=== PATIENT | female | born 1970 | race Caucasian/White ===

== ENCOUNTER 2018-04-16 09:55 | Day surgery (SDC) | payer OTHER ==
[2018-04-16] VITALS (8 sets, daily range): BP systolic 123–156; BP diastolic 60–76; PULSE 82–88; RESP 11–19; Ht 157.5 cm; Wt 84.6 kg
[~2018-04-16] VITALS: Ht 157.5 cm; Wt 84.6 kg
[~2018-04-16 09:55] MED LIST: BROMFENAC SODIUM 1.7 ML OPH DROP OPER SCH; CEPH-443 PO; CYCLOPENTOLATE 2% 2 ML OPH OPER SCH; FLUC200T PO; HYDR-3498 PO; LACTATED RINGER'S 1,000 ML IV SCH; LIDOCAINE 3.5% GEL TUBE OPER ONE; MOXIFLOXACIN 0.5% 3 ML OPH OPER SCH; PHENYLephrine 10% 5 ML OPH OPER SCH; SAN30GM TOP; TROPICAMIDE 1% 15 ML OPH OPER SCH
[2018-04-16] MEDS ORDERED: HYDR25TA6 PO (10:19)
[2018-04-16] MEDS ORDERED: LOSA100T8 PO (10:20)
[2018-04-16] MEDS ORDERED: METF100010 PO (10:20)
[2018-04-16] MEDS ORDERED: AMLO5TAB4 PO (10:20)
[2018-04-16] MEDS ORDERED: OFLO5DRO46 LEFT EYE (10:21)
[2018-04-16] MEDS ORDERED: PRED5DRO20 LEFT EYE (10:22)
[2018-04-16] MEDS ORDERED: KETO5DRO21 LEFT EYE (10:24)
[2018-04-16] MEDS: TETRACAINE 0.5% 4 ML OPH OPER SCH ×2 (10:48→12:40)
[2018-04-16] MEDS ORDERED: EPINEPHrine 1 MG INJ ONE ×2 (11:46→11:51)
[2018-04-16] MEDS ORDERED: CARBACHOL 0.01% 1.5 ML OPH INJ ONE (11:46)
--- NOTE | 2018-04-16 11:53 | HPN ---
Date/Time of Note Date/Time of Note DATE: 04/16/18 TIME: 11:53 Interval H&P Admission Note Pt. seen H&P reviewed: No system changes KELIN HERNANDEZ D.O. Apr 16, 2018 11:53
[2018-04-16] MEDS ORDERED: TRYPAN BLUE 0.5 ML SYG IO SCH (12:00)
[2018-04-16] MEDS ORDERED: LIDOCAINE 1.5%/EPI MPF (SDV) 30 ML VIAL INJ SCH (12:00)
--- NOTE | 2018-04-16 12:03 | PREAC ---
Date/Time of Note Date/Time of Note DATE: 04/16/18 TIME: 12:01 Anesthesia Eval and Record Evaluation Time Pre-Procedure Interview DATE: 04/16/18 TIME: 12:01 Age 47 Sex female NPO: 8 hrs Preoperative diagnosis L cataract Planned procedure L cataract extraction w/ IOL Past Medical History Past Medical History: Includes Cardio: HTN Endo: Diabetes Surgery & Anesthesia Issues No known issue Meds Anticoagulation: No Beta Emeka within 24 hr: No Reason Beta Emeka not given: Pt. not on B-Emeka Reported Medications Ketorolac Tromethamine Oph (Ketorolac Tromethamine Oph) 0.5%-5 Ml Opht Drops, 1 DROP LEFT EYE QID, EA 04/16/18 Prednisolone Acetate* (Pred Forte*) 5 Ml Susp, 1 DROP LEFT EYE QID, EA 04/16/18 Ofloxacin* (Ocuflox*) 0.3%-5 Ml Ophth Drops, 1 DROP LEFT EYE QID, BOTTLE 04/16/18 Metformin Hcl* (Metformin Hcl*) 1,000 Mg Tablet, 1000 MG PO WITH BREAKFAST DINNE, #60 TAB 04/16/18 Amlodipine Besylate* (Norvasc*) 5 Mg Tablet, 5 MG PO DAILY, TAB 04/16/18 Losartan Potassium* (Losartan Potassium*) 100 Mg Tablet, 100 MG PO DAILY, TAB 04/16/18 Hydrochlorothiazide* (Hydrochlorothiazide*) 25 Mg Tab, 25 MG PO DAILY, #30 TAB 04/16/18 Discontinued Scripts Cephalexin* (Keflex*) 500 Mg Capsule, 500 MG PO QID for 7 Days, CAP Prov:TITI SHELL PA-C 03/08/16 Collagenase* (Santyl*) 1 Applic Oint, 1 APPLIC TOP DAILY for 30 Days Prov:DANYA BARROW MD 06/21/15 Hydrocodone Bit/Acetaminophen (Anexsia 5-325 Mg Tablet) 1 Tab Tab, 1 TAB PO Q6 PRN for pain, #30 TAB Prov:DANYA BARROW MD 06/21/15 Fluconazole* (Diflucan*) 200 Mg Tab, 200 MG PO DAILY, #10 TAB Prov:DANYA BARROW MD 06/21/15 Current Medications Lactated Ringer's 1,000 ml @ 25 mls/hr Q24H IV ; Start 04/16/18 at 07:00 Cyclopentolate HCl (Cyclogyl 2% Oph) 1 drop Q5MIN X 3 OPER Last administered on 04/16/18 10:48; Admin Dose 1 DROP; Start 04/16/18 at 07:00 Bromfenac Sodium (Bromday) 1 drop Q5 MIN X3 OPER Last administered on 04/16/18 10:47; Admin Dose 1 DROP; Start 04/16/18 at 07:00 Phenylephrine HCl (Ak-Dilate 10%) 1 drop Q5MIN X 3 OPER Last administered on 04/16/18 10:47; Admin Dose 1 DROP; Start 04/16/18 at 07:00 Tropicamide (Mydriacyl 1%) 1 drop Q5MIN X 3 OPER Last administered on 04/16/18 10:46; Admin Dose 1 DROP; Start 04/16/18 at 07:00 Moxifloxacin HCl (Vigamox) 1 drop Q5MIN X 3 OPER Last administered on 04/16/18 10:48; Admin Dose 1 DROP; Start 04/16/18 at 07:00 Tetracaine HCl (Tetracaine 0.5% Steri-Unit Nancy) 1 drop Q5 MIN X3 OPER Last administered on 04/16/18 10:48; Admin Dose 1 DROP; Start 04/16/18 at 07:00 Lidocaine/ Epinephrine (Xylocaine 1.5%/ Epi Mpf(Sdv)) 30 ml ONCE INJ ; Start 04/16/18 at 12:00; Stop 04/16/18 at 12:01 Meds reviewed: Yes Allergies Coded Allergies: No Known Allergy (Unverified , 04/16/18) Allergies Reviewed: Yes Labs/Studies Labs Reviewed: Reviewed by anesthesiologist na 134, gluc 117 test: Negative Studies: ECG (nml), CXR (nad) Pre-procedure Exam Last vitals Vital Signs Date Temp Pulse Resp B/P (MAP) Pulse Ox O2 O2 Flow FiO2 Time Delivery Rate 04/16/18 97.5 88 18 156/76 100 Room Air 11:06 (102) Airway: Adequate mouth opening, Adequate thyromental dist Mallampati: Mallampati II Teeth: Abnormal (missing teeth) Lung: Normal Heart: Normal ASA Physical Status ASA physical status: 2 Emergency: None Planned Anesthetic General/MAC: MAC Pre-operative Attestations Prior to commencing anesthesia and surgery, the patient was re-evaluated, there was verification of: *The patient's identity *The results of appropriate recent lab work and preoperative vital signs *The above evaluation not changing prior to induction *Anesthetic plan, risk benefits, alternative and complications discussed with patient/family; questions answered; patient/family understands, accepts and wishes to proceed. HOANG PARTICIA Apr 16, 2018 12:03
[2018-04-16] MEDS ORDERED: MIDAZOLAM 1 MG/ML 2 ML INJ ONE (12:06)
[2018-04-16] MEDS ORDERED: CEFAZOLIN 1 GM INJ ONE (12:06)
[2018-04-16] MEDS ORDERED: ALBUTEROL 0.083% (NEB) 2.5 MG/3 ML AMP HHN PRN (12:30)
[2018-04-16] MEDS ORDERED: ACETAMINOPHEN 500 MG TAB PO PRN (12:30)
[2018-04-16] MEDS ORDERED: ACETAMINOPHEN 325 MG TAB PO PRN (12:30)
[2018-04-16] MEDS ORDERED: OXYCODONE/ACETAMINOPHEN (5/325) TAB PO PRN (12:30)
[2018-04-16] MEDS ORDERED: DIPHENHYDRAMINE 50 MG INJ IV PRN (12:30)
[2018-04-16] MEDS ORDERED: FENTAnyl 50 MCG/ML VIAL IV PRN (12:30)
[2018-04-16] MEDS ORDERED: ONDANSETRON 4 MG INJ IV PRN (12:30)
[2018-04-16] MEDS ORDERED: LABETALOL HCL 20MG INJ IV PRN (12:30)
[2018-04-16] MEDS ORDERED: hydrALAzine 20 MG INJ IV PRN (12:30)
[2018-04-16] MEDS ORDERED: TOBRAMYCIN/DEXAMETH 3.5 GM OPH OINT LEFT EYE ONE (12:40)
--- NOTE | 2018-04-16 13:03 | SIPON ---
Date/Time of Note Date/Time of Note DATE: 04/16/18 TIME: 13:01 Operative Report Preoperative Diagnosis Secondary mature cataract, Rt eye Postoperative Diagnosis Secondary mature cataract, Rt eye Operation/Procedure Performed Cataract extraction via phacoemulsification and IOL implantation, Lt eye Surgeon see signature line assistant professor of history none Anesthesia: MAC Estimated blood loss: none Transfusion Required none Specimen none Grafts/Implants Tyree MA 60 IOL 19.00 Complications none KELIN HERNANDEZ D.O. Apr 16, 2018 13:03
--- NOTE | 2018-04-16 13:05 | PAC ---
Date/Time of Note Date/Time of Note DATE: 04/16/18 TIME: 13:05 Post-Anesthesia Notes Post-Anesthesia Note Last documented vital signs Vital Signs Date Temp Pulse Resp B/P (MAP) Pulse Ox O2 O2 Flow FiO2 Time Delivery Rate 04/16/18 97.5 88 18 156/76 100 Room Air 11:06 (102) Activity: WNL Respiratory function: WNL Cardiovascular function: WNL Mental status: Baseline Pain reasonably controlled: Yes Hydration appropriate: Yes Nausea/Vomiting absent: Yes HOANG PATRICIA Apr 16, 2018 13:05
--- NOTE | 2018-04-16 13:37 | NUR ---
PACU NOTES: PATIENT AWAKE AND ALERT. S/P LEFT CATARACT EXTRACTION W/ IOL W/ LEFT EYE PATCH NO COMPLAIN OF PAIN. [facility] NOTIFIED OF TRANSFER TO [facility]. ROOM AIR 99%. BLOOD SUGAR 98
--- NOTE | 2018-04-16 14:18 | NUR ---
RE: DISCHARGE PATIENT DISCHARGED HOME. ALL DISCHARGE INSTRUCTIONS EXPLAINED AND PROVIDED TO PATIENT AND FAMILY. IV REMOVED. PATIENT VERBALIZED READINESS FOR DISCHARGE AND UNDERSTANDING OF INSTRUCTIONS PROVIDED. STABLE TO LEAVE THE HOSPITAL.
--- NOTE | 2018-04-16 15:28 | OPR ---
DATE OF OPERATION: 04/17/2018 SURGEON: Kelin Arenas DO ANESTHESIOLOGIST: Amada Wagner NP ANESTHESIA: MAC PREOPERATIVE DIAGNOSIS: Secondary diabetic mature cataract, left eye. POSTOPERATIVE DIAGNOSIS: Secondary diabetic mature cataract, left eye. PROCEDURE PLANNED: Cataract extraction via phacoemulsification and intraocular lens implantation, left eye. PROCEDURE PERFORMED: Cataract extraction via phacoemulsification and intraocular lens implantation, left eye. CONSENT: The patient was given detailed explanation regarding treatment option, outcome and possible complication of her condition. The patient is aware that she has high risk of complication due to underlying condition such as glaucoma, diabetes and hypertension. Complications included, but not limited to bleeding, infection, loss of the nucleus, loss of the fragment of nucleus, dislocation of intraocular lens, vitreous hemorrhage, loss of vision, cornea swelling, possible additional surgeries and loss of the eye as an organ. The patient understood. Consent was signed and can be found in her chart. DESCRIPTION OF PROCEDURE: The patient was brought to the operating room in stable condition, placed on operating table in supine position and her left eye was prepped for cataract surgery in routine sterile technique. Retractor was placed to hold her eyelid and clear cornea incision was done with keratome. This was followed by injection of Xylocaine 2% with epinephrine preservative-free as well as air bubble. It was followed by injection of trypan blue and prompt removal of the dye through irrigation and aspiration with balanced salt solution. The pupil was small and some dilation was done with iris push instrument,However with Viscoat agent, the pupil was enlarged sufficiently to perform the surgery. Capsulorrhexis was done with cystotome. Hydrodissection and hydrodelineation were performed. Nucleus rotated. Nagahara chopper and phaco tip were inserted and nucleus was divided into multiple pieces. Each of them was successfully emulsified. Some instability of zonulae was noticed, therefore the sulcus lens was injected. Additional Viscoat was injected into the sulcus and an Tyree MA60AC model 19.0 diopter IOL was inserted into the sulcus. Lens was centered and Miostat was injected. Remaining Viscoat agent was removed via irrigation aspiration with balanced salt solution. One single 8-0 Vicryl suture was placed on the wound. Additional air bubble was injected to protect the corneal endothelium. TobraDex ointment was instilled into conjunctival sac and a patch was placed over closed eyelid. Dictated By: KELIN ARENAS MD NT/[place] Conf#: [id number] DID#: [id number] ALEKS
== END 2018-04-16 14:10 | disposition home or self-care (01) ==
LOC: SDS 09:55
PROVIDERS: ATTEND Ophthalmology
DX: E13.36 Other specified diabetes mellitus with diabetic cataract (principal); I10 Essential (primary) hypertension
CPT/HCPCS: 66984; 82962; 84703; J0171; J0690; J2250; V2632

== ENCOUNTER 2018-06-25 08:56 | Day surgery (SDC) | payer BC, OTHER ==
[2018-06-24 15:26] VITALS: BMI 29.6
[2018-06-25] VITALS (12 sets, daily range): BP systolic 115–167; BP diastolic 68–82; PULSE 94–110; RESP 14–17; Ht 157.5 cm; Wt 78.0 kg
[~2018-06-25] VITALS: Ht 157.5 cm; Wt 78.0 kg
[~2018-06-25 08:56] MED LIST changes: +AMLO5TAB4 PO; +BALANCED SALT SOLN 15 ML OPH IRRIG ONE; -CEPH-443 PO; -FLUC200T PO; -HYDR-3498 PO; +HYDR25TA6 PO; +KETO5DRO21 LEFT EYE; -LACTATED RINGER'S 1,000 ML IV SCH; +LOSA100T15 PO; +METF100010 PO; +OFLO5DRO46 LEFT EYE; -PHENYLephrine 10% 5 ML OPH OPER SCH; +PHENYLephrine 2.5% 15 ML OPH OPER SCH; +PRED5DRO20 LEFT EYE; -SAN30GM TOP; +TETRACAINE 0.5% 4 ML OPH OPER SCH; -TROPICAMIDE 1% 15 ML OPH OPER SCH
[2018-06-25] MEDS ORDERED: LIDOCAINE 3.5% GEL TUBE ONE (10:27)
--- NOTE | 2018-06-25 10:32 | PREAC ---
Date/Time of Note Date/Time of Note DATE: 06/25/18 TIME: 10:28 Anesthesia Eval and Record Evaluation Time Pre-Procedure Interview DATE: 06/25/18 TIME: 10:28 Age 47 Sex female NPO: 8 hrs Preoperative diagnosis increased IOP left eye Planned procedure left eye partial removal of eye fluid, implant eye shunt Past Medical History Past Medical History: Includes Cardio: HTN, Dyslipidemia Endo: Diabetes, Other (hx diabetic ulcers ) Surgery & Anesthesia Issues No known issue Meds Anticoagulation: No Beta Emeka within 24 hr: No Reason Beta Emeka not given: Pt. not on B-Emeka Reported Medications Metformin Hcl* (Metformin Hcl*) 1,000 Mg Tablet, 1000 MG PO WITH BREAKFAST DINNE, #60 TAB 04/16/18 Losartan Potassium* (Losartan Potassium*) 100 Mg Tablet, 100 MG PO DAILY, TAB 04/16/18 Hydrochlorothiazide* (Hydrochlorothiazide*) 25 Mg Tab, 25 MG PO DAILY, #30 TAB 04/16/18 Discontinued Reported Medications Ketorolac Tromethamine Oph (Ketorolac Tromethamine Oph) 0.5%-5 Ml Opht Drops, 1 DROP LEFT EYE QID, EA 04/16/18 Prednisolone Acetate* (Pred Forte*) 5 Ml Susp, 1 DROP LEFT EYE QID, EA 04/16/18 Ofloxacin* (Ocuflox*) 0.3%-5 Ml Ophth Drops, 1 DROP LEFT EYE QID, BOTTLE 04/16/18 Amlodipine Besylate* (Norvasc*) 5 Mg Tablet, 5 MG PO DAILY, TAB 04/16/18 Current Medications Cyclopentolate HCl (Cyclogyl 2% Oph) 1 drop Q5MIN X 3 OPER ; Start 06/24/18 at 17:00 Bromfenac Sodium (Bromday) 1 drop Q5 MIN X3 OPER ; Start 06/24/18 at 17:00 Phenylephrine HCl (Ak-Dilate 2.5%) 1 drop Q5MIN X 3 OPER ; Start 06/24/18 at 17:00 Moxifloxacin HCl (Vigamox) 1 drop Q5MIN X 3 OPER ; Start 06/24/18 at 17:00 Tetracaine HCl (Tetracaine 0.5% Steri-Unit Nancy) 1 drop Q5 MIN X3 OPER ; Start 06/24/18 at 17:00 Bromfenac Sodium (Bromday) 1 drop Q5 MIN X3 OPER ; Start 06/24/18 at 17:00 Moxifloxacin HCl (Vigamox) 1 drop Q5MIN X 3 OPER ; Start 06/24/18 at 17:00 Tetracaine HCl (Tetracaine 0.5% Steri-Unit Nancy) 1 drop Q5 MIN X3 OPER ; Start 06/24/18 at 17:00 Meds reviewed: Yes Allergies Coded Allergies: No Known Allergy (Unverified , 06/25/18) Allergies Reviewed: Yes Labs/Studies Labs Reviewed: Reviewed by anesthesiologist test: N/A Studies: ECG, CXR Pre-procedure Exam Airway: Adequate mouth opening, Adequate thyromental dist Mallampati: Mallampati II Teeth: Normal Lung: Normal Heart: Normal ASA Physical Status ASA physical status: 2 Emergency: None Planned Anesthetic General/MAC: MAC, TIVA Planned Pain Management Parenteral pain med, Local by surgeon Pre-operative Attestations Prior to commencing anesthesia and surgery, the patient was re-evaluated, there was verification of: *The patient's identity *The results of appropriate recent lab work and preoperative vital signs *The above evaluation not changing prior to induction *Anesthetic plan, risk benefits, alternative and complications discussed with patient/family; questions answered; patient/family understands, accepts and wishes to proceed. NORI FIELDS Jun 25, 2018 10:32
[2018-06-25] MEDS ORDERED: OXYCODONE/ACETAMINOPHEN (5/325) TAB PO PRN ×2 (11:00)
[2018-06-25] MEDS ORDERED: ONDANSETRON 4 MG INJ IV PRN (11:00)
[2018-06-25] MEDS ORDERED: hydrALAzine 20 MG INJ IV PRN (11:00)
[2018-06-25] MEDS ORDERED: FENTAnyl 50 MCG/ML VIAL IV PRN ×3 (11:00)
[2018-06-25] MEDS ORDERED: LABETALOL HCL 20MG INJ IV PRN (11:00)
[2018-06-25] MEDS ORDERED: MIDAZOLAM 1 MG/ML 2 ML INJ ONE (11:45)
[2018-06-25] MEDS ORDERED: FENTAnyl 50 MCG/ML VIAL ONE (11:45)
[2018-06-25] MEDS ORDERED: TOBRAMYCIN/DEXAMETH 3.5 GM OPH OINT ONE (12:37)
[2018-06-25] MEDS ORDERED: LIDOCAINE 1%/EPI (1:100,000) (MDV) 20 ML ONE (12:37)
[2018-06-25] MEDS ORDERED: PHENYLephrine 10% 5 ML OPH ONE (12:37)
[2018-06-25] MEDS ORDERED: METOCLOPRAMIDE 10 MG INJ ONE (12:53)
[2018-06-25] MEDS ORDERED: FAMOTIDINE 20 MG INJ ONE (12:53)
[2018-06-25] MEDS ORDERED: PROPOFOL 40 ML ONE (12:53)
[2018-06-25] MEDS ORDERED: CEFAZOLIN 1 GM INJ ONE (12:53)
[2018-06-25] MEDS ORDERED: ONDANSETRON 4 MG INJ ONE (12:53)
--- NOTE | 2018-06-25 14:02 | SIPON ---
Date/Time of Note Date/Time of Note DATE: 06/25/18 TIME: 13:58 Operative Report Preoperative Diagnosis Advanced uncontrollable glaucoma, Lt.eye Postoperative Diagnosis Advanced uncontrollable glaucoma, Lt eye Operation/Procedure Performed Ahmed glaucoma valve implantation, Lt eye Surgeon see signature line ophthalmic surgical assistant none Anesthesia: general Estimated blood loss: minimal Transfusion Required none Specimen none Grafts/Implants none Complications none KELIN HERNANDEZ D.O. Jun 25, 2018 14:02
--- NOTE | 2018-06-28 07:45 | OPR ---
DATE OF OPERATION: 06/25/2018 Surgeon: Dr.natalia Deepa D.O. 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 PROCEDURE PLANNED: Ahmed glaucoma valve implantation with scleral donor transplant and pars plana anterior vitrectomy, left eye. PROCEDURE: Ahmed glaucoma valve implantation with donor scleral transplant placement, left eye. ANESTESIA: General. CONSENT: The patient was given all possible alternatives for treatment of her condition and she is aware that medical and laser therapy failed to control her intraocular pressure. She insisted having Ahmed valve tube placement done. The patient is aware of possible complications which included but not limited to hypertonia, low pressure, high pressure, bleeding, loss of vision, infection, loss of the eye as an organ, possibility of secondary surgery or additional surgery. DESCRIPTION OF PROCEDURE: The patient was brought to operating room in stable condition. The patient was placed on operating table in supine position and her left eye was prepped for the surgery in routine sterile technique. The patient was given lidocaine 2% with epinephrine preservative-free subconjunctivally in her superior temporal area. This was followed by paracentesis and injection of a Viscoat agent in anterior chamber. Then, incision at the limbal area was done with Andie scissors and conjunctiva and Tenon was from the sclera and deep pocket between two rectus muscles was created. Ahmed valve was placed into the pocket between 2 rectus muscles. Then, valve was primed and the front border of the valve was placed 8 mm temporally to the limbus. A 7-0 Prolene suture was used to attach valve with two stitches to the sclera as well as tube was attached to the sclera. Then, tube was cut according to the size of her anterior chamber with bevel up. Then, 22-gauge needle was used to enter into anterior chamber, about 3 to 4 mm behind limbus. Then, tube was inserted successfully into anterior chamber and a donor sclera was soaked in antibiotic and placed over the tube attached with four 8-0 Vicryl suture to the sclerae. The conjunctiva was placed over the donor sclera and attached with 8-0 Vicryl suture tightly. Then, TobraDex ointment was instilled into conjunctival sac and patch was placed over closed eyelids. The patient was transferred to recovery room in stable condition. Dictated By: KELIN HERNANDEZ MD NT/[place] Conf#: [id number] DID#: [id number] MTDD
== END 2018-06-25 15:40 | disposition home or self-care (01) ==
LOC: SDS 08:56
PROVIDERS: ATTEND Ophthalmology
DX: H40.20X0 Unspecified primary angle-closure glaucoma, stage unspecified (principal); H26.492 Other secondary cataract, left eye; I10 Essential (primary) hypertension; E78.5 Hyperlipidemia, unspecified; E11.9 Type 2 diabetes mellitus without complications
CPT/HCPCS: 66180; 82962; J0690; J2250; J2405; J2765; J3010; Z7512; Z7610

== ENCOUNTER 2018-08-27 07:08 | Day surgery (SDC) | payer BC ==
[2018-08-26 17:49] VITALS: BMI 31.4
[~2018-08-27] VITALS: Ht 157.5 cm; Wt 79.3 kg
[2018-08-27] VITALS (10 sets, daily range): BP systolic 136–157; BP diastolic 56–78; PULSE 78–82; RESP 10–24; Ht 157.5 cm; Wt 79.3 kg
[~2018-08-27 07:08] MED LIST changes: -AMLO5TAB4 PO; -BALANCED SALT SOLN 15 ML OPH IRRIG ONE; -CYCLOPENTOLATE 2% 2 ML OPH OPER SCH; -KETO5DRO21 LEFT EYE; +LACTATED RINGER'S 1,000 ML IV SCH; -LIDOCAINE 3.5% GEL TUBE OPER ONE; +LIDOCAINE 3.5% GEL TUBE OPER SCH; -OFLO5DRO46 LEFT EYE; -PHENYLephrine 2.5% 15 ML OPH OPER SCH; -PRED5DRO20 LEFT EYE
[2018-08-27] MEDS ORDERED: INSU100I33 SC (08:34)
[2018-08-27] MEDS ORDERED: AMLO5TAB4 PO (08:35)
[2018-08-27] MEDS ORDERED: SOD CHLORIDE 0.9% 1,000 ML IV SCH (09:00)
--- NOTE | 2018-08-27 09:04 | HPN ---
Date/Time of Note Date/Time of Note DATE: 08/27/18 TIME: 09:04 Interval H&P Admission Note Pt. seen H&P reviewed: No system changes KELIN HERNANDEZ D.O. August 27, 2018 09:04
[2018-08-27] MEDS ORDERED: MIDAZOLAM 1 MG/ML 2 ML INJ ONE (09:29)
[2018-08-27] MEDS ORDERED: LIDOCAINE 1.5%/EPI MPF (SDV) 30 ML VIAL INJ ONE (09:30)
[2018-08-27] MEDS ORDERED: TETRACAINE 0.5% 4 ML OPH RIGHT EYE ONE (09:30)
--- NOTE | 2018-08-27 09:31 | PREAC ---
Date/Time of Note Date/Time of Note DATE: 08/27/18 TIME: 09:30 Anesthesia Eval and Record Evaluation Time Pre-Procedure Interview DATE: 08/27/18 TIME: 09:30 Age 48 Sex female NPO: 8 hrs Preoperative diagnosis Right eye Planned procedure Right eye Past Medical History Past Medical History: Includes Endo: Diabetes Surgery & Anesthesia Issues No known issue Meds Anticoagulation: No Beta Emeka within 24 hr: No Reason Beta Emeka not given: Pt. not on B-Emeka Reported Medications Amlodipine Besylate* (Norvasc*) 5 Mg Tablet, 5 MG PO DAILY, TAB 08/27/18 Insulin Glargine,Hum.rec.anlog (Basaglar Kwikpen U-100) 100 Unit/1 Ml Insuln.pen , 4 UNIT SC QHS 08/27/18 Metformin Hcl* (Metformin Hcl*) 1,000 Mg Tablet, 1000 MG PO WITH BREAKFAST DINNE, #60 TAB 04/16/18 Losartan Potassium* (Losartan Potassium*) 100 Mg Tablet, 100 MG PO DAILY, TAB 04/16/18 Hydrochlorothiazide* (Hydrochlorothiazide*) 25 Mg Tab, 25 MG PO DAILY, #30 TAB 04/16/18 Current Medications Lactated Ringer's 1,000 ml @ 25 mls/hr Q24H IV ; Start 08/27/18 at 06:00; Stop 08/28/18 at 21:59 Bromfenac Sodium (Bromday) 1 drop Q5 MIN X3 OPER Last administered on 08/27/18at 08:14; Admin Dose 1 DROP; Start 08/27/18 at 06:00 Moxifloxacin HCl (Vigamox) 1 drop Q5MIN X 3 OPER Last administered on 08/27/18at 08:14; Admin Dose 1 DROP; Start 08/27/18 at 06:00 Tetracaine HCl (Tetracaine 0.5% Steri-Unit Nancy) 1 drop Q5 MIN X3 OPER Last administered on 08/27/18at 08:15; Admin Dose 1 DROP; Start 08/27/18 at 06:00 Lidocaine HCl (Akten 3.5% Gel Drops) 1 applic ONCE OPER Last administered on 08/27/18at 08:15; Admin Dose 1 APPLIC; Start 08/27/18 at 06:00; Stop 08/27/18 at 16:00 Sodium Chloride 1,000 ml @ 0 mls/hr Q0M IV Last administered on 08/27/18at 08:40; Admin Dose 0 MLS/HR; Start 08/27/18 at 09:00 Meds reviewed: Yes Allergies Coded Allergies: Fish Containing Products (Verified Allergy, Severe, 08/27/18) Allergies Reviewed: Yes Labs/Studies Labs Reviewed: Reviewed by anesthesiologist test: Negative Pre-procedure Exam Last vitals Vital Signs Date Temp Pulse Resp B/P (MAP) Pulse Ox O2 O2 Flow FiO2 Time Delivery Rate 08/27/18 96.7 82 18 154/73 100 Room Air 08:44 (100) Airway: Adequate mouth opening Mallampati: Mallampati II Teeth: Normal Lung: Normal Heart: Normal ASA Physical Status ASA physical status: 3 Emergency: None Planned Anesthetic General/MAC: MAC Pre-operative Attestations Prior to commencing anesthesia and surgery, the patient was re-evaluated, there was verification of: *The patient's identity *The results of appropriate recent lab work and preoperative vital signs *The above evaluation not changing prior to induction *Anesthetic plan, risk benefits, alternative and complications discussed with patient/family; questions answered; patient/family understands, accepts and wishes to proceed. SAMMY MALDONADO MD August 27, 2018 09:31
[2018-08-27] MEDS ORDERED: CEFAZOLIN 1 GM INJ ONE (10:20)
[2018-08-27] MEDS ORDERED: HYDROmorphONE 1 MG/5 ML IV SYRINGE IV PRN ×2 (10:30)
[2018-08-27] MEDS ORDERED: LIDOCAINE 1.5%/EPI MPF (SDV) 30 ML VIAL ONE (10:53)
[2018-08-27] MEDS ORDERED: POLYMYXIN/BACITRACIN 1L IRRIG ONE (10:53)
[2018-08-27] MEDS ORDERED: TOBRAMYCIN 0.3% 3.5 GM OPH OINT ONE (10:53)
[2018-08-27] MEDS ORDERED: NA HYALURONATE/CHONDROITIN 0.5 ML SYG ONE (10:54)
[2018-08-27] MEDS ORDERED: TOBRAMYCIN 0.3% 3.5 GM OPH OINT RIGHT EYE ONE (10:55)
--- NOTE | 2018-08-27 11:09 | SIPON ---
Date/Time of Note Date/Time of Note DATE: 08/27/18 TIME: 11:05 Operative Report Preoperative Diagnosis Advanced close angle glaucoma, Rt. eye Postoperative Diagnosis Advanced close angle glaucoma, Rt eye Operation/Procedure Performed Ahmed valve implantation with scleral graft, Rt eye Surgeon see signature line assistant cross country coach none Anesthesia: MAC Estimated blood loss: none Transfusion Required none Specimen none Grafts/Implants none Complications none KELIN HERNANDEZ D.O. August 27, 2018 11:08
--- NOTE | 2018-08-27 11:59 | PAC ---
Date/Time of Note Date/Time of Note DATE: 08/27/18 TIME: 11:59 Post-Anesthesia Notes Post-Anesthesia Note Last documented vital signs Vital Signs Date Temp Pulse Resp B/P (MAP) Pulse Ox O2 O2 Flow FiO2 Time Delivery Rate 08/27/18 82 24 144/75 100 Room Air 11:37 (98) 08/27/18 98.4 11:25 Activity: WNL Respiratory function: WNL Cardiovascular function: WNL Mental status: Baseline Pain reasonably controlled: Yes Hydration appropriate: Yes Nausea/Vomiting absent: Yes SAMMY MALDONADO MD August 27, 2018 11:59
[2018-08-27] MEDS ORDERED: ACETAMINOPHEN 325 MG TAB PO ONE ×2 (12:00)
--- NOTE | 2018-08-31 16:53 | OPR ---
DATE OF OPERATION: 08/27/2018 SURGEON: Kelin Arenas DO ANESTHESIOLOGIST: Carlitos Huddleston MD PREOPERATIVE DIAGNOSIS: Chronic angle closure glaucoma, right eye. POSTOPERATIVE DIAGNOSIS: Chronic angle closure glaucoma, right eye. PLANNED PROCEDURE: Ahmed valve implant insertion with donor scleral graft, right eye. PROCEDURE PERFORMED: Ahmed valve implant insertion with donor scleral graft. CONSENT: The patient was given all possible options for management of her condition, but medication and laser treatment failed. The patient preferred to have surgery. She is aware of most common possible complications which include infection, bleeding, retinal detachment, failed stent, increase of pressure, hypotony, decrease of pressure, possible loss of vision, loss of the eye as an organ. DESCRIPTION OF PROCEDURE: The patient was brought to operating room in stable condition and placed in supine position on operating table. Her right eye was prepped for surgery in routine sterile technique. Eyelid retractor was placed to keep her eyelid open. Incision was made 1.5 mm from the limbal area, some relaxing incision and horizontal to limbus incisions was performed. Andie scissors used to separate tennon capsulae from sclera and create the pocket between 2 rectal muscles, superior and temporal rectal muscle. Some lidocaine with epinephrine preservative-free was injected between tenon and sclera. Then valve was primed and attached to the sclera with 7-0 Prolene sutures 8 mm away from the limbus. Then stent was cut accordingly to cornea size with bevel up. Then 22-gauge needle was used to create tunnel insertion into anterior chamber. The viscoat agent was instilled into anterior chamber. Then the stent was inserted via the same tunnel and was attached to the sclera with 7-0 Vicryl suture. Then conjunctiva was closed with 7-0 Vicryl suture and TobraDex ointment was instilled into conjunctival sac. Eventually a patch was placed over closed eyelids. Patient transferred to recovery room in stable conditions. Dictated By: KELIN CLEARY/[place] Conf#: [id number] DID#: [id number] MTDD
== END 2018-08-27 12:10 | disposition home or self-care (01) ==
LOC: SDS 07:08
PROVIDERS: ATTEND Ophthalmology
DX: H40.2210 Chronic angle-closure glaucoma, right eye, stage unspecified (principal); E11.9 Type 2 diabetes mellitus without complications; Z79.84 Long term (current) use of oral hypoglycemic drugs; Z79.4 Long term (current) use of insulin
CPT/HCPCS: 66180; 82962; J0690; J2250; Z7512; Z7610

== ENCOUNTER 2018-11-12 08:05 | Day surgery (SDC) | payer BC ==
[~2018-11-12] VITALS: Ht 160 cm; Wt 79.5 kg
[2018-11-12] VITALS (9 sets, daily range): BP systolic 108–161; BP diastolic 63–80; PULSE 84–90; RESP 10–18; Ht 160 cm; Wt 79.5 kg
[~2018-11-12 08:05] MED LIST changes: +AMLO5TAB4 PO; -BROMFENAC SODIUM 1.7 ML OPH DROP OPER SCH; +FURO40TA4 ORAL; +INSU100I33 SC; -LACTATED RINGER'S 1,000 ML IV SCH; -LIDOCAINE 3.5% GEL TUBE OPER SCH; -MOXIFLOXACIN 0.5% 3 ML OPH OPER SCH; -TETRACAINE 0.5% 4 ML OPH OPER SCH
[2018-11-12] MEDS: TETRACAINE 0.5% 4 ML OPH OPER SCH ×2 (08:52→12:34)
[2018-11-12] MEDS ORDERED: TROPICAMIDE 1% 15 ML OPH OPER SCH (09:00)
[2018-11-12] MEDS ORDERED: CYCLOPENTOLATE 2% 2 ML OPH OPER SCH (09:00)
[2018-11-12] MEDS ORDERED: MOXIFLOXACIN 0.5% 3 ML OPH OPER SCH (09:00)
[2018-11-12] MEDS ORDERED: LACTATED RINGER'S 1,000 ML IV SCH (09:00)
[2018-11-12] MEDS ORDERED: PHENYLephrine 10% 5 ML OPH OPER SCH (09:00)
[2018-11-12] MEDS ORDERED: LIDOCAINE 3.5% GEL TUBE OPER ONE (09:00)
[2018-11-12] MEDS ORDERED: BROMFENAC SODIUM 1.7 ML OPH DROP OPER SCH (09:00)
--- NOTE | 2018-11-12 09:43 | HPN ---
Date/Time of Note Date/Time of Note DATE: 11/12/18 TIME: 09:43 Interval H&P Admission Note Pt. seen H&P reviewed: No system changes KELIN HERNANDEZ D.O. Nov 12, 2018 09:43
[2018-11-12] MEDS ORDERED: TRYPAN BLUE 0.5 ML SYG IO ONE (11:31)
[2018-11-12] MEDS ORDERED: EPINEPHrine 1 MG INJ ONE (11:31)
[2018-11-12] MEDS ORDERED: CARBACHOL 0.01% 1.5 ML OPH INJ ONE (11:31)
[2018-11-12] MEDS ORDERED: TOBRAMYCIN/DEXAMETH 3.5 GM OPH OINT ONE (11:31)
--- NOTE | 2018-11-12 11:42 | PREAC ---
Date/Time of Note Date/Time of Note DATE: 11/12/18 TIME: 11:40 Anesthesia Eval and Record Evaluation Time Pre-Procedure Interview DATE: 11/12/18 TIME: 11:40 Age 48 Sex female NPO: 8 hrs Preoperative diagnosis right cataract Planned procedure right cataract extration with IOL implant possible vitrectomy Past Medical History Past Medical History: Includes Cardio: HTN Endo: Diabetes Surgery & Anesthesia Issues No known issue Meds Anticoagulation: No Beta Emeka within 24 hr: No Reason Beta Emeka not given: Pt. not on B-Emeka Reported Medications Furosemide* (Furosemide*) 40 Mg Tablet, 1 TAB ORAL DAILY 11/12/18 Metformin Hcl* (Metformin Hcl*) 1,000 Mg Tablet, 1000 MG PO WITH BREAKFAST DINNE, #60 TAB 04/16/18 Losartan Potassium* (Losartan Potassium*) 100 Mg Tablet, 100 MG PO DAILY, TAB 04/16/18 Discontinued Reported Medications Amlodipine Besylate* (Norvasc*) 5 Mg Tablet, 5 MG PO DAILY, TAB 08/27/18 Insulin Glargine,Hum.rec.anlog (Basaglar Kwikpen U-100) 100 Unit/1 Ml Insuln.pen, 4 UNIT SC QHS 08/27/18 Hydrochlorothiazide* (Hydrochlorothiazide*) 25 Mg Tab, 25 MG PO DAILY, #30 TAB 04/16/18 Current Medications Lactated Ringer's 1,000 ml @ 25 mls/hr Q24H IV ; Start 11/12/18 at 09:00 Cyclopentolate HCl (Cyclogyl 2% Oph) 1 drop Q5MIN X 3 OPER Last administered on 11/12/18at 08:52; Admin Dose 1 DROP; Start 11/12/18 at 09:00 Bromfenac Sodium (Bromday) 1 drop Q5 MIN X3 OPER Last administered on 11/12/18at 08:51; Admin Dose 1 DROP; Start 11/12/18 at 09:00 Phenylephrine HCl (Ak-Dilate 10%) 1 drop Q5MIN X 3 OPER Last administered on 11/12/18at 08:52; Admin Dose 1 DROP; Start 11/12/18 at 09:00 Tropicamide (Mydriacyl 1%) 1 drop Q5MIN X 3 OPER Last administered on 11/12/18at 08:51; Admin Dose 1 DROP; Start 11/12/18 at 09:00 Moxifloxacin HCl (Vigamox) 1 drop Q5MIN X 3 OPER Last administered on 11/12/18at 08:52; Admin Dose 1 DROP; Start 11/12/18 at 09:00 Tetracaine HCl (Tetracaine 0.5% Steri-Unit Nancy) 1 drop Q5 MIN X3 OPER Last administered on 11/12/18at 08:52; Admin Dose 1 DROP; Start 11/12/18 at 09:00 Meds reviewed: Yes Allergies Coded Allergies: Fish Containing Products (Verified Allergy, Severe, 11/12/18) Allergies Reviewed: Yes Labs/Studies Labs Reviewed: Reviewed by anesthesiologist test: Negative Pre-procedure Exam Last vitals Vital Signs Date Temp Pulse Resp B/P (MAP) Pulse Ox O2 O2 Flow FiO2 Time Delivery Rate 11/12/18 97.6 90 18 161/80 100 Room Air 09:06 (107) Airway: Adequate mouth opening, Adequate thyromental dist Mallampati: Mallampati II Teeth: Normal Lung: Normal Heart: Normal ASA Physical Status ASA physical status: 2 Emergency: None Planned Anesthetic General/MAC: MAC Planned Pain Management Local by surgeon Pre-operative Attestations Prior to commencing anesthesia and surgery, the patient was re-evaluated, there was verification of: *The patient's identity *The results of appropriate recent lab work and preoperative vital signs *The above evaluation not changing prior to induction *Anesthetic plan, risk benefits, alternative and complications discussed with patient/family; questions answered; patient/family understands, accepts and wishes to proceed. ROGER LEON CRNA Nov 12, 2018 11:42
[2018-11-12] MEDS ORDERED: MIDAZOLAM 1 MG/ML 2 ML INJ ONE (11:56)
[2018-11-12] MEDS ORDERED: FENTAnyl 50 MCG/ML VIAL ONE (11:56)
[2018-11-12] MEDS ORDERED: FENTAnyl 50 MCG/ML VIAL IV PRN ×2 (12:00)
[2018-11-12] MEDS ORDERED: HYDROmorphONE 1 MG/5 ML IV SYRINGE IV PRN ×2 (12:00)
[2018-11-12] MEDS ORDERED: OXYCODONE/ACETAMINOPHEN (5/325) TAB PO PRN ×2 (12:00)
[2018-11-12] MEDS ORDERED: ONDANSETRON 4 MG INJ IV PRN (12:00)
[2018-11-12] MEDS ORDERED: PROPOFOL 20 ML ONE (12:12)
[2018-11-12] MEDS ORDERED: LIDOCAINE 1%/EPI 30 ML INJ INJ ONE (12:35)
[2018-11-12] MEDS ORDERED: CEFAZOLIN 1 GM INJ ONE (13:03)
--- NOTE | 2018-11-12 13:15 | SIPON ---
Date/Time of Note Date/Time of Note DATE: 11/12/18 TIME: 13:12 Operative Report Preoperative Diagnosis Secondary hypermature cataract, Lt eye Postoperative Diagnosis Secondary hypermature cataract, Rt.eye Operation/Procedure Performed Cataract extraction via phacoemulsification , partial anterior vitrectomy and IOL implantation, Rt eye Surgeon see signature line assistant real estate manager none Anesthesia: MAC Estimated blood loss: none Transfusion Required none Specimen none Grafts/Implants none Complications none KELIN HERNANDEZ D.O. Nov 12, 2018 13:15
--- NOTE | 2018-11-12 13:17 | PAC ---
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
--- NOTE | 2018-11-15 21:05 | OPR ---
DATE OF OPERATION: 11/12/2018 SURGEON: Kelin Arenas DO ANESTHESIOLOGIST: nurse Cierra anesthetic. PREOPERATIVE DIAGNOSIS: Secondary hypermature diabetic cataract, right eye, and vitreous degeneration, Rt eye. POSTOPERATIVE DIAGNOSIS: Secondary hypermature diabetic cataract Rt eye and vitreous degeneration, Rt.eye. PLANNED PROCEDURE: Extracapsular cataract extraction with intraocular lens implantation and partial anterior vitrectomy, right eye. PROCEDURE PERFORMED: Cataract extraction via phacoemulsification and intraocular lens implantation and partial anterior vitrectomy, right eye. 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 The complication included but not limited to infection, bleeding, retinal detachment, dislocation of intraocular lens, loss of natural lens or fragments of lens, and possible loss of vision and loss of eye as an organ. The patient understood, the consent signed and patient aware of all possible complications. Consent can be found in her chart. DESCRIPTION OF PROCEDURE: The patient was brought to the operating room in stable condition, placed on operating table in supine position and her right eye was prepped for cataract surgery in routine sterile technique. Retractor was placed in her right eye and clear cornea incision with keratome was performed which was followed by injection of Viscoat and blue dye and removal of blue dye with irrigation aspiration with balanced salt solution. Then anterior capsulorrhexis was performed with cystotome and and forceps. Then paracentesis was done with Superblade. Hydrodissection delineation was performed. Then additional Viscoat agent was injected and the pupil was enlarged with just manipulation with hooks, but pupil was not stable. It constantly was changing in size. Then phaco instrument was inserted as well as a [place] chopper and nucleus was divided in a fashion of horizontal chopping technique and each of the pieces of nuclear was successfully emulsified. Some instability of capsule was noticed. Therefore, a Bausch and Lomb, 15, 5 D anterior chamber lens was inserted. Prior to this, the clear cornea incision was enlarged with keratome and a glide was used to insert the Bausch and Lomb lens, then IOL was repositioned with Randal cruz, centered. PI was performed and the incision was closed with 10-0 nylon sutures. Then Viscoat agent was removed via irrigation and aspiration and TobraDex ointment was instilled into conjunctival sac and patch was placed over closed eyelid. The patient transferred to recovery room in stable condition. Dictated By: KELIN CLEARY/[place] Conf#: [id number] DID#: [id number] MTDD
== END 2018-11-12 14:30 | disposition home or self-care (01) ==
LOC: SDS 08:05
PROVIDERS: ATTEND Ophthalmology
DX: E11.36 Type 2 diabetes mellitus with diabetic cataract (principal); H43.811 Vitreous degeneration, right eye; I10 Essential (primary) hypertension; Z79.84 Long term (current) use of oral hypoglycemic drugs; Z79.4 Long term (current) use of insulin
CPT/HCPCS: 66984; 82962; 84703; J0171; J2250; J3010; V2630; Z7512; Z7610; J0690